=== PATIENT | male | born 1985 ===

== ENCOUNTER 2020-07-16 18:29 | Observation (INO) ==
[2020-07-16] MEDS ORDERED: Lidocaine -MPF 2% 5 ML VIAL INFILT ONE (20:46)
[2020-07-16] MEDS ORDERED: *HR* Propofol 200 MG/20 ML VIAL IVP ONE (20:46)
[2020-07-16] MEDS ORDERED: *HR* Propofol 500 MG/50 ML BOTTLE IVP ONE (20:46)
[2020-07-16] MEDS ORDERED: Ondansetron 4 MG/2 ML VIAL IVP PRN (21:20)
[2020-07-16] MEDS ORDERED: Naloxone 0.4 MG/ML INJ IVP PRN (21:20)
[2020-07-16 21:57] LABS: Basophils # 0.1 K/mcL (0.0-0.2); Basophils % 0.9 %; Eosinophils # 0.1 K/mcL (0.0-0.6); Eosinophils % 1.2 %; Hemoglobin 7.9 g/dL (12.9-16.9); Immature Granulocytes % 0.3 % (0-4); Lymphocytes # 1.2 K/mcL (0.6-4.6); Lymphocytes % 18.2 %; Mean Corpuscular HGB Conc 27.2 g/dL (31.6-35.5); Mean Corpuscular Hemoglobin 19.2 pg (28.0-33.3); Mean Corpuscular Volume 70.6 fL (83.0-100.0); Mean Platelet Volume 9.8 fL (9.4-12.4); Monocytes # 0.5 K/mcL (0.0-1.3); Monocytes % 7.8 %; Platelet Count 498 K/mcL (140-400); Red Blood Count 4.11 M/mcL (4.19-5.50); Red Cell Distribution Width 17.7 % (11.5-14.5); Segmented Neutrophils % 71.6 %; White Blood Count 6.8 K/mcL (4.3-11.1)
[2020-07-16 21:58] LABS: Neutrophils # 4.9 K/mcL (1.6-8.9)
[2020-07-16 21:59] LABS: INR 1.1; Prothrombin Time 12.2 Seconds (9.4-12.1)
[2020-07-16 22:01] LABS: Activated Partial Thrombo Time 24.2 Seconds (26.0-36.0)
[2020-07-16 22:11] LABS: Alanine Aminotransferase 35 Units/L (7-52); Albumin/Globulin Ratio 1.6 (1.1-2.2); Alkaline Phosphatase 61 Units/L (34-104); Aspartate Amino Transferase 27 Units/L (13-39); BUN/Creatinine Ratio 10 (6-26); Bilirubin,Total 0.5 mg/dL (0.3-1.0); Blood Urea Nitrogen 8 mg/dL (6-20); Calcium 9.7 mg/dL (8.6-10.3); Carbon Dioxide 26 mEq/L (23-29); Chloride 102 mEq/L (98-107); Globulin 3.1 g/dL (2.4-3.5); Glucose 94 mg/dL (70-105); Osmolality,Calculated 282 (280-300); Phosphorous 2.4 mg/dL (2.7-4.5); Potassium 3.4 mEq/L (3.5-5.1); Sodium 137 mEq/L (136-145); Total Protein 8.1 g/dL (6.4-8.9); eGFR For African Americans > 60 (> 60); eGFR For Non-African Americans > 60 (> 60)
[2020-07-16 22:12] LABS: Anisocytosis 1+ (Not Present); Hypochromasia Present (Not Present); Microcytosis Present (Not Present)
[2020-07-16 22:13] LABS: Platelet Estimate Normal (Normal)
[2020-07-16] MEDS ORDERED: *HR* LORazepam 2 MG/ML VIAL IVP PRN ×3 (23:28)
[2020-07-17] MEDS: Folic Acid 1 MG in 0.9 % Sodium Chloride 50 ML IVPB SCH ×2 (00:27→23:57)
[2020-07-17] MEDS ORDERED: Potassium Phosphate 44 MEQ in 0.9 % Sodium Chloride 250 ML IVPB ONE (01:58)
[2020-07-17] MEDS: Pantoprazole 40 MG VIAL IVP SCH ×2 (05:29→17:42)
[2020-07-17 05:46] LABS: Mean Platelet Volume 9.2 fL (9.4-12.4)
[2020-07-17 05:47] LABS: Hematocrit 27.6 % (37.5-50.1); Hemoglobin 7.3 g/dL (12.9-16.9); Mean Corpuscular HGB Conc 26.4 g/dL (31.6-35.5); Mean Corpuscular Hemoglobin 18.4 pg (28.0-33.3); Mean Corpuscular Volume 69.5 fL (83.0-100.0); Platelet Count 449 K/mcL (140-400); Red Blood Count 3.97 M/mcL (4.19-5.50); Red Cell Distribution Width 17.2 % (11.5-14.5); White Blood Count 5.9 K/mcL (4.3-11.1)
[2020-07-17] MEDS: Thiamine (B-1) 200 MG in 0.9 % Sodium Chloride 50 ML IVPB SCH (10:02)
[2020-07-17 12:20] LABS: % Iron Saturation 3 % (20-55); Iron 16 mcg/dL (65-175); Transferrin 417 mg/dL (203-362)
[2020-07-17 12:39] LABS: Ferritin < 8 ng/mL (20-250)
[2020-07-17 12:44] LABS: Folate 20.3 ng/mL (3.0-16.0)
[2020-07-17 13:42] LABS: Basophils # 0.1 K/mcL (0.0-0.2); Eosinophils # 0.2 K/mcL (0.0-0.6); Eosinophils % 3.2 %; Immature Granulocytes % 0.2 % (0-4); Lymphocytes # 1.8 K/mcL (0.6-4.6); Lymphocytes % 28.4 %; Monocytes # 0.7 K/mcL (0.0-1.3); Monocytes % 10.8 %; Neutrophils # 3.5 K/mcL (1.6-8.9); Segmented Neutrophils % 56.4 %
[2020-07-17] MEDS ORDERED: Cyanocobalamin (B-12) 1,000 MCG/ML VIAL IM ONE (17:13)
[2020-07-18] MEDS: Pantoprazole 40 MG VIAL IVP SCH ×2 (05:39→17:31)
[2020-07-18 06:22] LABS: Red Cell Distribution Width 17.3 % (11.5-14.5)
[2020-07-18 06:23] LABS: Hematocrit 28.7 % (37.5-50.1); Hemoglobin 7.8 g/dL (12.9-16.9); Mean Corpuscular HGB Conc 27.2 g/dL (31.6-35.5); Mean Corpuscular Hemoglobin 18.7 pg (28.0-33.3); Mean Corpuscular Volume 68.8 fL (83.0-100.0); Mean Platelet Volume 9.1 fL (9.4-12.4); Platelet Count 421 K/mcL (140-400); Red Blood Count 4.17 M/mcL (4.19-5.50); White Blood Count 5.9 K/mcL (4.3-11.1)
[2020-07-18] MEDS ORDERED: Tetracaine/Benzocaine/Butamben 1 SPRAY AEROSOL MM ONE (08:14)
[2020-07-18] MEDS: Thiamine (B-1) 200 MG in 0.9 % Sodium Chloride 50 ML IVPB SCH (09:58)
[2020-07-18 12:06] LABS: Hepatitis B Surface Antigen Nonreactive (Nonreactive)
[2020-07-18 12:35] LABS: Hepatitis B Core IgM Nonreactive (Nonreactive)
[2020-07-18 12:36] LABS: Hepatitis C Virus Antibody Nonreactive (Nonreactive)
[2020-07-18 12:37] LABS: Hepatitis A Antibody IgM Nonreactive (Nonreactive)
[2020-07-19] MEDS: Folic Acid 1 MG in 0.9 % Sodium Chloride 50 ML IVPB SCH (00:45)
[2020-07-19 06:02] LABS: Immature Granulocytes % 0.2 % (0-4); Red Blood Count 4.16 M/mcL (4.19-5.50); Red Cell Distribution Width 17.2 % (11.5-14.5)
[2020-07-19 06:04] LABS: Basophils # 0.1 K/mcL (0.0-0.2); Basophils % 1.3 %; Eosinophils # 0.3 K/mcL (0.0-0.6); Eosinophils % 4.5 %; Hematocrit 29.1 % (37.5-50.1); Hemoglobin 7.8 g/dL (12.9-16.9); Lymphocytes # 1.4 K/mcL (0.6-4.6); Lymphocytes % 25.7 %; Mean Corpuscular HGB Conc 26.8 g/dL (31.6-35.5); Mean Corpuscular Hemoglobin 18.8 pg (28.0-33.3); Monocytes # 0.7 K/mcL (0.0-1.3); Monocytes % 11.7 %; Neutrophils # 3.2 K/mcL (1.6-8.9); Platelet Count 362 K/mcL (140-400); Segmented Neutrophils % 56.6 %; White Blood Count 5.6 K/mcL (4.3-11.1)
[2020-07-19 07:44] LABS: Platelet Estimate Normal (Normal)
[2020-07-19 07:45] LABS: Anisocytosis 1+ (Not Present); Hypochromasia Present (Not Present); Macrocytosis Present (Not Present); Microcytosis Present (Not Present); Poikilocytosis 1+ (Not Present); Target Cells 1+ (Not Present)
[2020-07-19] MEDS: Cyanocobalamin (B-12) 1,000 MCG TABLET PO SCH (09:26)
[2020-07-19 10:14] LABS: Immunoglobulin A (CELIAC) 258 mg/dL (68-408)
[2020-07-19] MEDS ORDERED: Acetaminophen 325 MG TABLET PO PRN (18:20)
[2020-07-19] MEDS: *HR* Heparin 5,000 UNIT/ML VIAL SQ SCH (21:06)
[2020-07-20] MEDS: *HR* Heparin 5,000 UNIT/ML VIAL SQ SCH ×3 (05:38→20:22)
[2020-07-20] MEDS: Cyanocobalamin (B-12) 1,000 MCG TABLET PO SCH (07:50)
[2020-07-20 09:00] LABS: Tissue Transglutaminase IgA <2 U/mL (0-3)
[2020-07-21] MEDS: *HR* Heparin 5,000 UNIT/ML VIAL SQ SCH (03:39)
[2020-07-21 06:42] VITALS: BP 108/67
[2020-07-21] MEDS: Cyanocobalamin (B-12) 1,000 MCG TABLET PO SCH (09:01)
[2020-07-21 13:19] LABS: Influenza A PCR Negative (Negative); Influenza B PCR Negative (Negative); Resp. Syncytial Virus PCR Negative (Negative)
[2020-07-21 13:20] LABS: SARS-CoV-2 by PCR (In House) Negative (Negative)
== END 2020-07-21 15:00 | disposition home or self-care (01) ==
LOC: 3ANU → SUATTDRO 20:45
PROVIDERS: ADMIT Internal Medicine; ATTEND Internal Medicine
PROC: ENDOEBX (2020-07-18 10:10)